=== PATIENT | male | born 1945 | race Caucasian/White ===

== ENCOUNTER 2022-09-22 05:20 | Inpatient (IN) | payer MEDICARE, OTHER ==
[~2022-09-22] VITALS: Ht 177.8 cm; Wt 62.1 kg
--- NOTE | 2022-09-22 05:15 | NUR ---
RN CLOSING NOTE PATIENT ARRIVED TO UNIT AMBULATING. A/OX4. NO S/S OF DISTRESS, BREATHING WITHOUT DIFFICULTY ON ROOM AIR. PATIENT STABLE. IV ACCESS ACHIEVED AT LAC #20. PATIENT WAS ORIENTED TO THE UNIT. PATIENT GIVEN CALL LEONG AND INSTRUCTED ON ITS USE. PATIENT'S BELONGINGS ACCOUNTED FOR, LOGGED INTO SHEET, AND PLACED IN CHART. ALL CONSENTS FOR DAY SURGERY PROCEDURE SIGNED BY PATIENT. PATIENT WILL BE FULL CODE FOR PROCEDURE ONLY. THIS INFORMATION WILL BE ENDORSE TO NEXT SHIFT POST-SURGERY. SAFETY MEASURES IN PLACE: BED LOCKED AND AT LOWEST POSITION, RAILS UP X2, CALL LEONG WITHIN REACH. WILL ENDORSE TO NEXT SHIFT FOR MONA. Addendum: 09/22/22 at 0640 by MELISSA SHUKLA RN OPENING & CLOSING NOTE
--- NOTE | 2022-09-22 06:50 | NUR ---
RN NOTE PATIENT WENT DOWN TO SURGERY.
[2022-09-22] MEDS ORDERED: LIDOCAINE 2%-EPI 1:100,000 30 ML VIAL ONE (07:00)
[2022-09-22] MEDS ORDERED: VANCOMYCIN 1 GM VIAL ONE (07:00)
[2022-09-22] MEDS ORDERED: dexaMETHasone SOD PHOSPHATE 10 MG/ML VIAL ONE (07:01)
[2022-09-22] MEDS ORDERED: OXYMETAZOLINE HCL NASAL SPRAY 30 ML BOTTLE NS ONE (07:01)
[2022-09-22 07:02] VITALS: BP 153/95; TEMP 98; O2SAT 97
[2022-09-22] MEDS ORDERED: Magnesium 1 GM/2 ML VIAL ONE (07:06)
[2022-09-22] MEDS ORDERED: FENTANYL PF 100MCG/2ML AMPUL ONE (07:06)
[2022-09-22] MEDS ORDERED: KETAMINE HCL (500MG/10ML) 50 MG/ML VIAL ONE (07:06)
[2022-09-22] MEDS ORDERED: FAMOTIDINE/PF INJ 20 MG/2 ML VIAL IV ONE (07:07)
[2022-09-22] MEDS ORDERED: ROCURONIUM BROMIDE 50 MG/5 ML ONE (07:07)
[2022-09-22] MEDS ORDERED: ASPI-1420 PO (07:10)
[2022-09-22] MEDS ORDERED: MAGN400T8 PO (07:10)
[2022-09-22] MEDS ORDERED: DORZ10DR13 EACHEYE (07:10)
[2022-09-22] MEDS ORDERED: FLAX1000 PO (07:10)
[2022-09-22] MEDS ORDERED: FERR325T23 PO (07:10)
[2022-09-22] MEDS ORDERED: METF-440 PO (07:10)
[2022-09-22] MEDS ORDERED: TAFLUPROST (07:10)
[2022-09-22] MEDS ORDERED: ATOR10TA PO (07:10)
--- NOTE | 2022-09-22 07:10 | NUR ---
AWAITING FOR PATIENT ON SURGERY
[2022-09-22] MEDS ORDERED: ONDANSETRON HCL/PF 4 MG/2 ML VIAL ONE (10:45)
[2022-09-22] MEDS ORDERED: HYDROMORPHONE 1 MG/1 ML DISP.SYRIN ONE (10:59)
[2022-09-22] MEDS ORDERED: ONDANSETRON HCL/PF 4 MG/2 ML VIAL IVP PRN (11:30)
[2022-09-22] MEDS ORDERED: IV NS 0.9% 1,000 ML IV PRN (11:30)
[2022-09-22] MEDS ORDERED: ACETAMINOPHEN 325 MG TABLET PO PRN (11:30)
--- NOTE | 2022-09-22 11:48 | NUR ---
Received patient from surgery, A/O x 4, able to communicate thru writing notes, vitals taken: BP-149/83; HR-76; SP02-99; Temp-98.4; RR-18. MD ordered: HOB elevated at 30 degrees, no drinking from straw, puree diet , ice chips as tolerated progress to soft diet also as tolerated. Suction ready at bedside, all orders acknowledged and prepared. All other medications faxed to pharmacy. Labs & DC order per hospitalist. Charge nurse, aware, will continue to monitor
[2022-09-22] MEDS ORDERED: KETOROLAC TROMETHAMINE INJ 30 MG/ML VIAL IV PRN (13:00)
[2022-09-22] MEDS ORDERED: ZIOPTAN EACHEYE (13:32)
[2022-09-22 16:00] VITALS: BP 148/80; TEMP 98.1; O2SAT 94
--- NOTE | 2022-09-22 19:08 | NUR ---
RN CLOSING NOTE PATIENT AWAKE A/O X3, WITH BOUTS OF CONFUSION, AMBULATING, NO S/S OF DISTRESS, BREATHING WITHOUT DIFFICULTY ON ROOM AIR. PATIENT STABLE. IV ACCESS AT LAC #20. SAFETY PROTOCOL IN PLACED. WILL BE ENDORSED TO PM SHIFT NURSE FOR MONA.
[2022-09-22] MEDS ORDERED: MENTHOL/CETYLPYRD (CEPACOL) 1 LOZ LOZENGE PO PRN (20:00)
[2022-09-22] MEDS ORDERED: MAGNESIUM HYDROXIDE 30 ML UDC PO PRN (20:00)
[2022-09-22] MEDS: VANCOMYCIN 1 GM in IV D5W 250ml IV SCH (20:06)
[2022-09-22 20:30] VITALS: BP 117/63; TEMP 97.6; O2SAT 95
[2022-09-22] MEDS: TIMOLOL MAL/DORZOLAM HCL OPHTH 10 ML BOTTLE EACHEYE SCH (21:00)
--- NOTE | 2022-09-22 21:56 | NUR ---
PHARMACY CALLED AND INFORMED NURSE THAT THE EYE MEDICATION TIMOLOL MAL/DORZOLAM HCL IS NOT AVAILABLE. CHARGE NURSE IS INFORMED AND AWARE.
[2022-09-22] MEDS ORDERED: ATORVASTATIN 10 MG TABLET PO SCH (22:00)
[2022-09-22] MEDS ORDERED: ZIOPTAN EACHEYE SCH (22:00)
[2022-09-22] MEDS ORDERED: ASPIRIN EC 81 MG TABLET.DR PO SCH (22:00)
--- NOTE | 2022-09-22 22:50 | NUR ---
RN CLOSING NOTE PT IS AWAKE IN BED. PT IS A/O X 4, ABLE TO MAKE NEEDS KNOWN. PT IS IN RA, TOLERATING WELL, BREATHING EVEN AND UNLABORED @ THIS TIME. PT IV PRESENT ON LEFT AC #20G, PATENT, INTACT AND FLUSHES WELL W/ NO S&SX OF INFILTRATION @ SITE NOTED. SAFETY MEASURE IS IN PLACE. BED IN LOWEST AND LOCKED POSITION. SIDE RAILS UP X 2. BEDSIDE TABLE AND CALL LIGHT IS EASY REACH. BED ALARM IS ON. WILL CONTINUE TO MONITOR PT ACCORDINGLY. Addendum: 09/22/22 at 2252 by SERVANDO SAWANT RN ERROR: THIS NOTE IS RN OPENING NOTE. Addendum: 09/22/22 at 2253 by SERVANDO SAWANT RN NOTE @ 1900
[2022-09-22] MEDS ORDERED: MENTHOL/CETYLPYRD (CEPACOL) 1 LOZ LOZENGE ONE (23:59)
--- NOTE | 2022-09-23 06:37 | NUR ---
RN CLOSING NOTE PT IS AWAKE & RESTING COMFORTABLY IN BED. PT IS A/O X 4, RESPONSIVE AND FOLLOWS VERBAL COMMAND. PT IS IN RA, W/ NO RESPIRATORY DISTRESS @ THIS TIME. PT IV PRESENT ON LEFT AC #20G, PATENT, INTACT AND FLUSHES WELL W/ NO S&SX OF INFILTRATION @ SITE NOTED. SAFETY MEASURE IS IN PLACE. BED IN LOWEST AND LOCKED POSITION. SIDE RAILS UP X 2. BEDSIDE TABLE AND CALL LIGHT IS EASY REACH. BED ALARM IS ON. WILL ENDORSE PT TO THE NEXT SHIFT FOR MONA.
--- NOTE | 2022-09-23 07:27 | NUR ---
MS RN OPENING NOTE Received patient in bed, awake. A/O x 4, able to make needs known. On room air, tolerating well. IV access in LAC #20g, sl. Safety measures maintained: bed in lowest locked position, side rails up x 2, call light and tray table within easy reach. Will continue to monitor.
[2022-09-23] MEDS ORDERED: PANTOPRAZOLE 40 MG TABLET.DR PO SCH (07:30)
[2022-09-23 08:00] VITALS: BP 155/68; TEMP 98.6; O2SAT 99
[2022-09-23 08:48] LABS: BASOPHILS % (AUTO) 0.3 % (0.0-2.0); HEMATOCRIT 43 % (39-51); HEMOGLOBIN 13.6 g/dL (13.5-17.5); LYMPHOCYTES # (AUTO) 1.8 K/uL (0.8-4.8); LYMPHOCYTES % (AUTO) 11.7 % (20.0-44.0); MEAN CORPUSCULAR HGB CONC 32 g/dl (31.0-36.0); MEAN CORPUSCULAR VOLUME 83 fL (80-96); MONOCYTES # (AUTO) 1.1 K/uL (0.1-1.30); MONOCYTES % (AUTO) 6.9 % (2.0-12.0); NEUTROPHILS # (AUTO) 12.5 K/uL (1.8-8.9); NEUTROPHILS % (AUTO) 81.1 % (43.0-81.0); PLATELET COUNT (AUTO) 365 K/uL (150-450); RED BLOOD CELL COUNT(AUTO) 5.16 MIL/uL (4.5-6.0); WHITE BLOOD COUNT (AUTO) 15.4 K/uL (4.3-11.0)
[2022-09-23] MEDS ORDERED: CHOLECALCIFEROL 1,000 UNIT TABLET (VIT D3) PO SCH (09:00)
[2022-09-23] MEDS ORDERED: METFORMIN 500 MG TABLET PO SCH (09:00)
[2022-09-23] MEDS ORDERED: FERROUS SULFATE (325 MG) 325 MG/TAB TABLET PO SCH (09:00)
[2022-09-23] MEDS: VANCOMYCIN 1 GM in IV D5W 250ml IV SCH (09:04)
[2022-09-23 09:08] LABS: CALCIUM, SERUM 9.4 mg/dL (8.5-10.1); CREATININE 1.3 mg/dL (0.6-1.3); POTASSIUM 3.9 mmol/L (3.5-5.1)
[2022-09-23 09:15] LABS: ALBUMIN 3.7 g/dL (3.4-5.0); BILIRUBIN,TOTAL 0.6 mg/dL (0.2-1.0); MAGNESIUM 2.3 mg/dL (1.8-2.4); PHOSPHORUS 2.9 mg/dL (2.5-4.9); TOTAL PROTEIN, SERUM 8.4 g/dL (6.4-8.2)
[2022-09-23] MEDS: TIMOLOL MAL/DORZOLAM HCL OPHTH 10 ML BOTTLE EACHEYE SCH (10:20)
--- NOTE | 2022-09-23 11:38 | NUR ---
MS STOVE MECHANIC NOTE Patient discharged to home in stable condition, ambulatory. A/O x 4, no c/o pain/discomfort. On room air, tolerating well. No skin issues, no bleeding on surgical site. All belongings accounted for. Discharge instruction and packet given to patient, verbalized understanding. ID access removed, dry and clean dressing applied to site. ID name armband removed. Patient left the unit at 1125 accompanied by Music Teacher (Meghana). MD and Charge Nurse aware of discharge.
== END 2022-09-23 11:24 | disposition home or self-care (01) | DRG 517 ==
LOC: DS 05:20 → MED 05:21
PROVIDERS: ADMIT Nurse Practitioner Family; ATTEND Nurse Practitioner Family
PROC: 0NBT0ZX Excision of Right Mandible, Open Approach, Diagnostic (ICD-10-PCS; principal; 2022-09-22)
PROC: 0NSV0ZZ Reposition Left Mandible, Open Approach (ICD-10-PCS; principal; 2022-09-22)
PROC: 0NBV0ZX Excision of Left Mandible, Open Approach, Diagnostic (ICD-10-PCS; principal; 2022-09-22)
PROC: 0NUV07Z Supplement Left Mandible with Autologous Tissue Substitute, Open Approach (ICD-10-PCS; principal; 2022-09-22)
PROC: 0NUR07Z Supplement Maxilla with Autologous Tissue Substitute, Open Approach (ICD-10-PCS; principal; 2022-09-22)
PROC: 0NBR0ZX Excision of Maxilla, Open Approach, Diagnostic (ICD-10-PCS; principal; 2022-09-22)
PROC: 0NUT07Z Supplement Right Mandible with Autologous Tissue Substitute, Open Approach (ICD-10-PCS; principal; 2022-09-22)
PROC: 0NST0ZZ Reposition Right Mandible, Open Approach (ICD-10-PCS; principal; 2022-09-22)
DX: M84.48XA Pathological fracture, other site, initial encounter for fracture (principal); M27.2 Inflammatory conditions of jaws; M27.49 Other cysts of jaw; D16.5 Benign neoplasm of lower jaw bone; D16.4 Benign neoplasm of bones of skull and face; J32.0 Chronic maxillary sinusitis; E11.9 Type 2 diabetes mellitus without complications; D50.9 Iron deficiency anemia, unspecified; E78.5 Hyperlipidemia, unspecified
CPT/HCPCS: 36415; 80053-TC; 83735-TC; 84100-TC; 85025-TC; 87081-TC; 88305-TC; 88311-TC; 88312-TC; 93307-TC; A4223; C1713; G0378; J1100; J1170; J2370; J2405; J2704; J3010; J3370; J3475; J3490; J7030; J7040; J7050; J7060